=== PATIENT | female | born 1985 | race African-American/Black ===

== ENCOUNTER 2017-05-10 19:25 | Emergency (ER) | payer MEDICAID, OTHER ==
[~2017-05-10] VITALS: Ht 165.1 cm; Wt 1.2 kg
[~2017-05-10 19:25] MED LIST: FERROUS SULFAT325 MG ORAL
[2017-05-10 20:10] VITALS: BP 127/74
[2017-05-10] MEDS ORDERED: IBUPROFEN600 MG ORAL (21:24)
[2017-05-10] MEDS ORDERED: CEPHALEXIN500 MG ORAL (21:24)
[2017-05-10 21:33] VITALS: BP 127/74
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
== END 2017-05-10 21:33 | disposition home or self-care (01) ==
LOC: EMR 20:05
DX: S61.319A Laceration without foreign body of unspecified finger with damage to nail, initial encounter (principal); S69.92XA Unspecified injury of left wrist, hand and finger(s), initial encounter; Y04.8XXA Assault by other bodily force, initial encounter; Y93.9 Activity, unspecified; Y92.9 Unspecified place or not applicable; Z88.0 Allergy status to penicillin
CPT/HCPCS: 29130; 99284

== ENCOUNTER 2017-07-15 23:21 | Emergency (ER) | payer MEDICAID, OTHER ==
[~2017-07-15] VITALS: Ht 165.1 cm; Wt 100.7 kg
[~2017-07-15 23:21] MED LIST changes: +CEPHALEXIN500 MG ORAL; +IBUPROFEN600 MG ORAL
[2017-07-15 23:35] VITALS: BP 121/78
--- NOTE | 2017-07-15 23:42 | Emergency Room Report ---
History of Present Illness General Chief Complaint: Upper Extremity Injury Source: Patient Present Illness HPI Is a 31-year-old female who is right-hand dominant. She works at the [employer]. 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 Complaining of pain to that area. This occur few hours ago. No nausea no vomiting. Worse with movement. Denies any other complaint. No trauma. Allergies: Coded Allergies: PENICILLINS (Verified Allergy, Unknown, Hives, 11/26/15) Patient History Past Medical History: see triage record, old chart reviewed Past Surgical History: other Pertinent Family History: none Social History: Denies: smoking Last Menstrual Period: "LAST SATURDAY" Now: No Immunizations: other Reviewed Nursing Documentation: PMH: Agreed, PSxH: Agreed Nursing Documentation-PMH Hx Asthma: Yes Review of Systems Eye: Denies: eye pain, blurred vision ENT: Denies: ear pain, nose congestion, throat swelling Respiratory: Denies: cough, shortness of breath Cardiovascular: Denies: chest pain, palpitations Gastrointestinal: Denies: abdominal pain, diarrhea, nausea, vomiting Musculoskeletal: Reports: joint pain, Denies: back pain Skin: Denies: rash Neurological: Denies: headache, numbness Endocrine: Denies: increased thirst, increased urine Hematologic/Lymphatic: Denies: easy bruising All Other Systems: negative except mentioned in HPI Physical Exam Vital Signs Date Time Temp Pulse Resp B/P (MAP) Pulse Ox O2 Delivery O2 Flow Rate FiO2 07/15/17 23:26 97.7 78 18 121/78 100 vitals normal Sp02 EP Interpretation: reviewed, normal General Appearance: well appearing, no apparent distress, alert Head: normocephalic, atraumatic Eyes: bilateral eye PERRL, bilateral eye EOMI ENT: hearing grossly normal, normal pharynx Neck: full range of motion, supple, no meningismus Respiratory: chest non-tender, lungs clear, normal breath sounds Cardiovascular #1: regular rate, rhythm, no murmur Gastrointestinal: normal bowel sounds, non tender, no mass, no organomegaly, no bruit, non-distended Musculoskeletal: back normal, gait/station normal, normal range of motion, other - Tenderness to the base of the right thumb. Sensation normal. Full range of motion. No deformity. Neurologic: alert, oriented x3 Psychiatric: mood/affect normal Skin: warm/dry Procedures Splinting Splinting : Consent: Verbal Location: Right thumb Hand-Made Type: plaster Splint: thumb spica Pre-Proc Neuro Vasc Exam: normal Post-Proc Neuro Vasc Exam: normal Patient Tolerated: Well Complications: None Medical Decision Making Diagnostic Impression: Primary Impression: Sprain of hand, thumb, right Qualified Codes: S63.641A - Sprain of metacarpophalangeal joint of right thumb , initial encounter ER Course Patient presents with sprain to the thumb. No fracture or dislocation. We'll discharge him. Patient splinted. Other X-Ray Diagnostic Results Other X-Ray Diagnostic Results : X-Ray ordered: Right wrist x-rays # of Views/Limited Vs Complete: 4 View Indication: Pain EP Interpretation: Yes Interpretation: no dislocation, no soft tissue swelling, no fractures Impression: No acute disease Electronically Signed by: Electronically signed by Andre Davila MD Last Vital Signs Date Time Temp Pulse Resp B/P (MAP) Pulse Ox O2 Delivery O2 Flow Rate FiO2 07/15/17 23:26 97.7 78 18 121/78 100 Status: improved Disposition: HOME, SELF-CARE Condition: Stable Scripts Ibuprofen* (MOTRIN*) 600 Mg Tablet 600 MG ORAL THREE TIMES A DAY, #30 TAB 0 Refills Prov: ANDRE DAVILA M.D. 07/16/17 Additional Instructions: Followup with Worker's Comp. in 2 to 3 days return if worse. ANDRE DAVILA M.D. Jul 15, 2017 23:42
[2017-07-15] MEDS ORDERED: Norco 5mg/325mg tab ORAL ONE (23:45)
[2017-07-15] MEDS ORDERED: NKM (23:53)
[2017-07-16] MEDS ORDERED: IBUPROFEN600 MG ORAL (00:15)
[2017-07-16 00:20] VITALS: BP 121/78
--- NOTE | 2017-07-16 11:47 | Diagnostic Imaging Report ---
Indication: Pain Findings: 3 views of the right wrist were obtained. No acute fractures, malalignment, erosions or periostitis are identified. Bone mineralization is within normal limits. Soft tissues are unremarkable. Impression: Negative examination of the right wrist.
== END 2017-07-16 00:20 | disposition home or self-care (01) ==
LOC: EMR 23:40
DX: S63.641A Sprain of metacarpophalangeal joint of right thumb, initial encounter (principal); W19.XXXA Unspecified fall, initial encounter; Y93.9 Activity, unspecified; Y99.0 Civilian activity done for income or pay; Z88.0 Allergy status to penicillin
CPT/HCPCS: 29125; 99283

== ENCOUNTER 2018-10-04 08:02 | Emergency (ER) | payer OTHER, MEDICAID ==
[~2018-10-04] VITALS: Ht 165.1 cm; Wt 90.7 kg
[~2018-10-04 08:02] MED LIST changes: +NKM
[2018-10-04] MEDS ORDERED: ALBUTEROL2.5 MG/3 M INH (08:14)
--- NOTE | 2018-10-04 08:28 | Emergency Room Report ---
History of Present Illness General Chief Complaint: Nausea, Vomiting, and Diarrhea Source: Patient Present Illness HPI Patient presents with nausea vomiting and diarrhea that began at 3 AM. She ate fried fish last night that no one else ate and she believes this might be the source. No fevers or chills. The stools been brown in color and now somewhat green. She denies dysuria. The nausea is somewhat better. She does have a slight amount of crampiness in her stomach. This crampiness is rated 4/10. It' s intermittent and gets better after diarrhea. She has been vomiting bile recently. She has not taken any medication this morning. She denies ill contacts, travel. She denies medical problems. No recent travel. No chest pain, shortness of breath, cough, sore throat headache or dizziness when she stands. LNMP 11/5 and normal. 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 Last Menstrual Period: 09/08/2018 Now: No Reviewed Nursing Documentation: PMH: Agreed; PSxH: Agreed Nursing Documentation-PMH Past Medical History: No History, Except For Hx Cardiac Problems: No Hx Hypertension: No Hx Pacemaker: No Hx Asthma: Yes Hx COPD: No Hx Diabetes: No Hx Cancer: No Hx Gastrointestinal Problems: No Hx Dialysis: No History Of Psychiatric Problem: No Hx Neurological Problems: No Hx Cerebrovascular Accident: No Hx Seizures: No Review of Systems All Other Systems: negative except mentioned in HPI Physical Exam Vital Signs Date Time Temp Pulse Resp B/P (MAP) Pulse Ox O2 Delivery O2 Flow Rate FiO2 10/04/18 08:08 98.1 79 14 109/69 98 Room Air Sp02 EP Interpretation: reviewed, normal General Appearance: well appearing, no apparent distress, GCS 15, non-toxic Head: normocephalic Eyes: bilateral eye normal inspection, bilateral eye PERRL ENT: moist mucus membranes Neck: supple Respiratory: lungs clear, normal breath sounds Cardiovascular #1: regular rate, rhythm Cardiovascular #2: 2+ radial (R) Gastrointestinal: normal inspection, normal bowel sounds, no mass, non- distended, tenderness - minimal diffuse Genitourinary: no CVA tenderness Musculoskeletal: back normal, gait/station normal, normal range of motion Neurologic: alert, oriented x3, grossly normal Psychiatric: mood/affect normal Skin: normal inspection, warm/dry Medical Decision Making Diagnostic Impression: Primary Impression: Gastroenteritis Additional Impression: UTI (urinary tract infection) Qualified Codes: N30.00 - Acute cystitis without hematuria ER Course Patient presents with nausea vomiting diarrhea after eating questionable food last night. Differential includes gastroenteritis, viral syndrome, food poisoning amongst others. Evaluation will be with labs and urinalysis. The patient will be treated with IV hydration and Zofran. The lack of fever and blood in the stools suggests this is not invasive. UA with pyuria. WBC and CMP normal. Rocephin given. Patient vomited after Rocephin. She feels this caused nausea. Zofran repeated. Patient improved with treatment. Tolerating PO well. Discussed treatment plan. Patient stable for outpatient observation and treatment. Laboratory Tests Test 10/04/18 08:30 White Blood Count 9.3 K/UL (4.8-10.8) Red Blood Count 4.64 M/UL (4.20-5.40) Hemoglobin 11.8 G/DL (12.0-16.0) L Hematocrit 36.6 % (37.0-47.0) L Mean Corpuscular Volume 79 FL (80-99) L Mean Corpuscular Hemoglobin 25.5 PG (27.0-31.0) L Mean Corpuscular Hemoglobin Concent 32.3 G/DL (32.0-36.0) Red Cell Distribution Width 12.8 % (11.6-14.8) Platelet Count 328 K/UL (150-450) Mean Platelet Volume 6.3 FL (6.5-10.1) L Neutrophils (%) (Auto) 58.6 % (45.0-75.0) Lymphocytes (%) (Auto) 30.4 % (20.0-45.0) Monocytes (%) (Auto) 7.3 % (1.0-10.0) Eosinophils (%) (Auto) 2.9 % (0.0-3.0) Basophils (%) (Auto) 0.7 % (0.0-2.0) Urine Color Pale yellow Urine Appearance Slightly cloudy Urine pH 6 (4.5-8.0) Urine Specific [place] 1.020 (1.005-1.035) Urine Protein 1+ (NEGATIVE) H Urine Glucose (UA) Negative (NEGATIVE) Urine Ketones Negative (NEGATIVE) Urine Blood 1+ (NEGATIVE) H Urine Nitrite Negative (NEGATIVE) Urine Bilirubin Negative (NEGATIVE) Urine Urobilinogen Normal MG/DL (0.0-1.0) Urine Leukocyte Esterase 3+ (NEGATIVE) H Urine RBC 20-30 /HPF (0 - 2) H Urine WBC 60-80 /HPF (0 - 2) H Urine Squamous Epithelial Cells Many /LPF (NONE/OCC) H Urine Bacteria Few /HPF (NONE) Urine HCG, Qualitative Negative (NEGATIVE) Sodium Level 138 MMOL/L (136-145) Potassium Level 4.0 MMOL/L (3.5-5.1) Chloride Level 104 MMOL/L (98-107) Carbon Dioxide Level 25 MMOL/L (21-32) Anion Gap 9 mmol/L (5-15) Blood Urea Nitrogen 10 mg/dL (7-18) Creatinine 0.9 MG/DL (0.55-1.30) Estimate Glomerular Filtration Rate > 60 mL/min (>60) Glucose Level 94 MG/DL (74-106) Calcium Level 9.1 MG/DL (8.5-10.1) Total Bilirubin 0.4 MG/DL (0.2-1.0) Aspartate Amino Transferase (AST) 14 U/L (15-37) L Alanine Aminotransferase (ALT) 16 U/L (12-78) Alkaline Phosphatase 60 U/L (46-116) Total Protein 8.8 G/DL (6.4-8.2) H Albumin 3.6 G/DL (3.4-5.0) Globulin 5.2 g/dL Albumin/Globulin Ratio 0.7 (1.0-2.7) L Lipase 71 U/L (73-393) L Last Vital Signs Date Time Temp Pulse Resp B/P (MAP) Pulse Ox O2 Delivery O2 Flow Rate FiO2 10/04/18 10:43 98.1 72 14 109/69 98 Room Air Status: improved Disposition: HOME, SELF-CARE Condition: Improved Scripts Nitrofurantoin Monohyd/M-Cryst* (MACROBID 100 MG*) 100 Mg Capsule 100 MG ORAL EVERY 12 HOURS, #14 CAP Prov: Nick Mae MD 10/04/18 Ondansetron Odt* (ZOFRAN ODT*) 4 Mg Tab.rapdis 4 MG BC EVERY 8 HOURS, #6 TAB 1 Refill Prov: Nick Mae MD 10/04/18 Nick Mae MD Oct 04, 2018 08:28
[2018-10-04 08:36] VITALS: BP 109/69
[2018-10-04 08:45] LABS: BASOPHILS % (AUTO) 0.7 % (0.0-2.0); EOSINOPHILS % (AUTO) 2.9 % (0.0-3.0); HEMATOCRIT 36.6 % (37.0-47.0); HEMOGLOBIN 11.8 G/DL (12.0-16.0); LYMPHOCYTES % (AUTO) 30.4 % (20.0-45.0); MEAN CORPUSCULAR VOLUME 79 FL (80-99); MONOCYTES % (AUTO) 7.3 % (1.0-10.0); NEUTROPHILS % (AUTO) 58.6 % (45.0-75.0); PLATELET COUNT 328 K/UL (150-450); RED BLOOD COUNT 4.64 M/UL (4.20-5.40); RED CELL DISTRIBUTION WIDTH 12.8 % (11.6-14.8); WHITE BLOOD COUNT 9.3 K/UL (4.8-10.8)
[2018-10-04 08:50] LABS: APPEARANCE,URINE SLIGHTLY CLOUDY; BILIRUBIN, URINE NEGATIVE (NEGATIVE); COLOR,URINE PALE YELLOW; GLUCOSE, URINE (UA) NEGATIVE (NEGATIVE); KETONES,URINE NEGATIVE (NEGATIVE); LEUKOCYTE ESTERASE ,URINE 3+ (NEGATIVE); NITRITE,URINE NEGATIVE (NEGATIVE); PH,URINE 6 (4.5-8.0); PROTEIN,URINE 1+ (NEGATIVE); UROBILINOGEN,URINE NORMAL MG/DL (0.0-1.0)
[2018-10-04 08:52] LABS: ANION GAP 9 mmol/L (5-15); BLOOD UREA NITROGEN 10 mg/dL (7-18); CALCIUM 9.1 MG/DL (8.5-10.1); CARBON DIOXIDE 25 MMOL/L (21-32); CHLORIDE 104 MMOL/L (98-107); CREATININE 0.9 MG/DL (0.55-1.30); SODIUM 138 MMOL/L (136-145)
[2018-10-04 08:56] LABS: ALANINE AMINOTRANSFERASE 16 U/L (12-78); ALBUMIN 3.6 G/DL (3.4-5.0); ALBUMIN/GLOBULIN RATIO 0.7 (1.0-2.7); ALKALINE PHOSPHATASE 60 U/L (46-116); ASPARTATE AMINO TRANSFERASE 14 U/L (15-37); BILIRUBIN,TOTAL 0.4 MG/DL (0.2-1.0)
[2018-10-04] MEDS ORDERED: cefTRIAXone 1 GM in NS 55 ML IVPB ONE (09:15)
[2018-10-04] MEDS ORDERED: ONDANSETRON ODT4 MG BC (10:35)
[2018-10-04] MEDS ORDERED: NITROFURANTOIN100 M2 ORAL (10:35)
[2018-10-04 10:42] VITALS: BP 107/65
[2018-10-04 10:43] VITALS: BP 109/69
== END 2018-10-04 10:45 | disposition home or self-care (01) ==
LOC: EMR 09:05
DX: K52.9 Noninfective gastroenteritis and colitis, unspecified (principal); N30.00 Acute cystitis without hematuria; Z88.0 Allergy status to penicillin
CPT/HCPCS: 36415; 80053; 81003; 81025; 83690; 85025; 87086; 96361; 96365; 96375; 99284; J0696; J2405

== ENCOUNTER 2018-11-14 18:35 | Emergency (ER) | payer OTHER, MEDICAID ==
[~2018-11-14] VITALS: Ht 165.1 cm; Wt 90.7 kg
[~2018-11-14 18:35] MED LIST changes: +ALBUTEROL2.5 MG/3 M INH; +NITROFURANTOIN100 M2 ORAL; +ONDANSETRON ODT4 MG BC
[2018-11-14 18:55] VITALS: BP 118/68
[2018-11-14] MEDS ORDERED: Acetaminophen 500mg (ES) tab ORAL ONE (19:15)
--- NOTE | 2018-11-14 19:30 | Emergency Room Report ---
History of Present Illness General Chief Complaint: Abdominal Pain Source: Patient Present Illness HPI 33-year-old female patient presents the ER complaining of suprapubic abdominal pain for the past 2 days. Reports diarrhea during this time contrary to triage report. denies vomiting. Denies blood in diarrhea. Denies recent travel outside the country. Denies recent antibiotic use. Reports history of bladder infection, states this pain feels similar. Reports pain worse with movement and picking up boxes. States she works for the [employer]. Denies dysuria, hematuria. Denies vaginal discharge. Denies foul-smelling odor. Denies recent sexual activity. Denies frequency or urgency. Denies flank pain. Denies fever, chest pain, shortness of breath. Reports able to pass flatus. Denies constipation. Allergies: Coded Allergies: PENICILLINS (Verified Allergy, Unknown, Hives, 11/26/15) Patient History Past Medical History: see triage record Last Menstrual Period: 11/01/18 Reviewed Nursing Documentation: PMH: Agreed; PSxH: Agreed Nursing Documentation-PMH Past Medical History: No History, Except For Hx Cardiac Problems: No Hx Hypertension: No Hx Pacemaker: No Hx Asthma: Yes Hx COPD: No Hx Diabetes: No Hx Cancer: No Hx Gastrointestinal Problems: No Hx Dialysis: No Hx Neurological Problems: No Hx Cerebrovascular Accident: No Hx Seizures: No Review of Systems All Other Systems: negative except mentioned in HPI Physical Exam Vital Signs Date Time Temp Pulse Resp B/P (MAP) Pulse Ox O2 Delivery O2 Flow Rate FiO2 11/14/18 18:44 98.1 70 18 118/68 98 Room Air Sp02 EP Interpretation: reviewed, normal General Appearance: well appearing, no apparent distress, alert, GCS 15, non- toxic Head: normocephalic, atraumatic Eyes: bilateral eye normal inspection, bilateral eye PERRL ENT: hearing grossly normal, normal pharynx, no angioedema, normal voice, uvula midline, moist mucus membranes Neck: full range of motion Respiratory: lungs clear, normal breath sounds, no rhonchi, no respiratory distress, no accessory muscle use, no wheezing, speaking full sentences Cardiovascular #1: regular rate, rhythm, no edema Gastrointestinal: soft, no mass, non-distended, no guarding, no hernia, no rebound, tenderness - suprapubic, other - negative Rovsing, negative Fitzgerald Musculoskeletal: back normal, digits/nails normal, gait/station normal, normal range of motion, non-tender Neurologic: alert, oriented x3, responsive, motor strength/tone normal, sensory intact Skin: no rash Medical Decision Making PA Attestation Dr. Montero is my supervising Physician whom patient management has been discussed with. Diagnostic Impression: Primary Impression: UTI (urinary tract infection) Additional Impression: Diarrhea ER Course Pt presents to ED c/o urinary symptoms. DDX considered but are not limited to cystitis, pyelonephritis, STI, vaginitis, , nephrolithiasis, hernia, diverticulitis, ovarian torsion, enteritis, food poisoning. Patient resting comfortably, not writhing in pain, no hematuria, low suspicion for torsion or nephrolithiasis, does not require US at this time. Denies blood in diarrhea, afebrile, low suspicion for diverticulitis. VITAL SIGNS are WNL, patient is afebrile. Ordered UA and urine . ER COURSE Provided with pain medication. Suprapubic tenderness more laterally on left side, no guarding, no rebound, normal bowel sounds. No palpable hernia, follow-up with primary care provider for further evaluation and treatment for possible hernia due to pain symptoms that worsen with lifting heavy objects. Able to pass flatus, able to pass bowel movements, low suspicion for incarcerated or strangulated hernia, does not require CT scan at this time. Take Tylenol for pain symptoms. followup with PCP to discuss treatment and referral. UA results show elevated WBCs, indicate UTI, will treat with abx. Urine negative If concern for STI, followup with STI clinic for testing and treatment. Denies STI concern. Follow-up with [facility]ALTH ADMINISTRATOR. No fever, no blood in stool, no recent travel or hospitalizations, does not require abx treatment at this time for diarrhea symptoms. No signs of dehydration, moist mucus membranes, cap refil <2seconds, normal skin turgor. Patient reports eating and drinking normally. BRAT diet. Drink plenty of fluids. Patient is resting comfortably in chair, nontoxic appearing, in no acute distress. Patient states they feel better and is ready to go home. ER precautions given. DISCHARGE -Rx provided for Keflex, patient previously taken Keflex. Rx provided for Tylenol Patient is stable for discharge. Patient resting comfortably, in no acute distress, nontoxic appearing, talking without difficulty. Will provide with patient care instructions and any necessary prescriptions. Patient understands and agrees to treatment plan. Patient encouraged to drink plenty of fluids. Patient to take medication as instructed. Care plan and follow-up instructions provided. Patient questions asked and answered. Reports understanding and agreement to treatment plan. Patient instructed to follow-up with primary care provider in 3 - 5 days. ER precautions given. Patient instructed to return to ER immediately for any new or worsening of symptoms. Including but not limited to fever, abdominal pain , intractable vomiting. - Please note that this Emergency Department Report was dictated using [employer] media analyst technology software, occasionally this can lead to erroneous entry secondary to interpretation by the dictation equipment. Labs Test 11/14/18 18:54 Urine Color Yellow Urine Appearance Slightly cloudy Urine pH 8 (4.5-8.0) Urine Specific [place] 1.010 (1.005-1.035) Urine Protein Negative (NEGATIVE) Urine Glucose (UA) Negative (NEGATIVE) Urine Ketones 2+ (NEGATIVE) Urine Blood 1+ (NEGATIVE) Urine Nitrite Negative (NEGATIVE) Urine Bilirubin Negative (NEGATIVE) Urine Urobilinogen Normal MG/DL (0.0-1.0) Urine Leukocyte Esterase 3+ (NEGATIVE) Urine RBC 10-15 /HPF (0 - 2) Urine WBC 15-20 /HPF (0 - 2) Urine Squamous Epithelial Cells Many /LPF (NONE/OCC) Urine Bacteria Few /HPF (NONE) Urine HCG, Qualitative Negative (NEGATIVE) Last Vital Signs Date Time Temp Pulse Resp B/P (MAP) Pulse Ox O2 Delivery O2 Flow Rate FiO2 11/14/18 18:55 98.1 70 18 118/68 98 Room Air Status: improved Disposition: HOME, SELF-CARE Condition: Stable Scripts Acetaminophen* (TYLENOL EXTRA STRENGTH*) 500 Mg Tablet 500 MG ORAL Q8H PRN for Prn Headache/Temp > 101, #30 TAB 0 Refills Prov: Oc Hansen P.A. 11/14/18 Cephalexin* (KEFLEX*) 500 Mg Capsule 500 MG ORAL EVERY 12 HOURS, #14 CAP 0 Refills Prov: Oc Hansen P.A. 11/14/18 Patient Instructions: Hernia, Adult, [id number], Urinary Tract Infection, [id number] Additional Instructions: Followup with primary care provider and followup with and./or OBGYN. Discussed follow-up and treatment for possible hernia, discussed need for further imaging. Drink plenty of fluids. Take medications as directed. Avoid spicy foods, avoid dairy foods. BRAT diet: bananas, rice, apple sauce, toast. Clear liquid diet. Consider Immodium for diarrhea and Tylenol for pain symptoms. Take medications as directed. Patient questions asked and answered. ER precautions given, patient instructed to return to ER immediately for any new or worsening of symptoms. Oc Hansen Nov 14, 2018 19:30
[2018-11-14 19:42] LABS: APPEARANCE,URINE SLIGHTLY CLOUDY; BILIRUBIN, URINE NEGATIVE (NEGATIVE); GLUCOSE, URINE (UA) NEGATIVE (NEGATIVE); KETONES,URINE 2+ (NEGATIVE); LEUKOCYTE ESTERASE ,URINE 3+ (NEGATIVE); NITRITE,URINE NEGATIVE (NEGATIVE); PH,URINE 8 (4.5-8.0); PROTEIN,URINE NEGATIVE (NEGATIVE); UROBILINOGEN,URINE NORMAL MG/DL (0.0-1.0)
[2018-11-14 19:44] LABS: COLOR,URINE YELLOW
[2018-11-14] MEDS ORDERED: TYLENOL EXTRA500 MG ORAL (20:11)
[2018-11-14] MEDS ORDERED: CEPHALEXIN500 MG ORAL (20:11)
[2018-11-14 20:24] VITALS: BP 116/63
== END 2018-11-14 20:24 | disposition home or self-care (01) ==
LOC: EMR 20:21
DX: N39.0 Urinary tract infection, site not specified (principal); R19.7 Diarrhea, unspecified; J45.909 Unspecified asthma, uncomplicated; Z88.0 Allergy status to penicillin
CPT/HCPCS: 81003; 81025; 87086; 99283